=== PATIENT | female | born 2000 | race Caucasian/White ===

== ENCOUNTER 2024-10-27 17:30 | Emergency (ER) | payer BC, SELFPAY ==
--- NOTE | ~2024-10-27 | CT_ITS ---
CLINICAL INDICATION: Dysuria with associated flank pain, hematuria and vomiting COMPARISON: None. TECHNIQUE: Multiple contiguous axial images of the abdomen and pelvis were performed without the admi nistration of intravenous contrast The dose-length product (DLP) was 166.78 mGy-cm. Automated exposure control and iterative reconstruction technique were employed. FINDINGS/OBSERVATIONS: Visualized lower thorax: The bilateral lung bases are clear. The heart is of normal size, without pericardial effusion. Liver: The liver demonstrates homogeneous attenuation and is not enlarged. Gallbladder and biliary system: The gallbladder is only minimally distended, and otherwise unremarkable. Pancreas: Limited evaluation of the pancreas secondary to the lack of intravenous contrast. Spleen: The spleen demonstrates homogeneous attenuation and is not enlarged. Kidneys: The bilateral kidneys are without hydronephrosis or renal calculi. Adrenal glands: Unremarkable. Gastrointestinal tract: Bowel loops are unremarkable. Appendix: The air-filled appendix is of normal caliber (coronal series, images 22 through 32). Vasculature: Unremarkable. Lymph nodes: Limited evaluation without intravenous contrast. Pelvic structures: The bladder is only minimally distended, and demonstrates surrounding inflammatory change, findings s uggesting cystitis. The uterus is anteverted and anteflexed, and otherwise unremarkable. Body wall and musculoskeletal: No significant degenerative disease within the lower thoracic or lumbosacral spine. IMPRESSION: No obstructive uropathy. Findings suggesting cystitis for which clinical and serologic correlation is needed. Reviewed, dictated and finalized at location A. IMPRESSION: No obstructive uropathy. Findings suggesting cystitis for which clinical and serologic correlation is ne eded.
--- OUTSIDE RECORDS SUMMARY | 2024-10-27 17:32 | XMS_ITS | Clinical Summary ---
Author Organization [facility] Address [address] [place] [address] Care Team Providers Care Peoplesoft Hr Developer Name Role Phone Unavailable Primary Care Provider Unavailabl e Source Comments [facility],non-owned Affiliates and Associated Physician Practices is amultiple site organization consisting of ambulatory clinics and hospital sitesin [place], [place], [place] and [place]. This disclosure is being madepursuant to the Care Everywhere program and may not contain all information available regarding this patient. Last updated 17.[facility] Allergies No known active allergies Social History Tobacco Use Types Packs/Day Years Used Date Smoking Tobacco: Never Assessed Comments No Sex and Gender Information Value Date Recorded Sex Assigned at Not on file Legal Sex Female 9:43 AM CDT Gender Identity Not on file Sexual Orientation Not on file Plan of Treatment Health Maintenance Due Date Last Done Comments HIV SCREENING 2016 HPV VACCINE (1 - 3-dose series) 2016 MENINGOCOCCAL (Group B) VACCINE SHARED DECISION-MAKING (1 of 2 - Standard) 2017 HEPATITIS C SCREENING 09/29/2019 DTAP/TDAP/TD VACCINES (1 - Tdap) 2020 HEPATITIS B VACCINE (1 of 3 - 19+ 3-dose series) 2020 CHLAMYDIA/GONORRHEA SCREENING 08/12/2022 08/12/2021 PAP SMEAR 2022 COVID-19 VACCINE (1 - season) 2023 DEPRESSION SCREENING 03/13/2024 INFLUENZA VACCINE (#1) 2024 2, 03/11/2020, 12/28/2017, Additional history exists ZOSTER VACCINE (1 of 2) 10/04/2051 HIB VACCINE Aged Out No longer eligi ble based on patient's age to complete this topic MENINGOCOCCAL GROUPS A/C/Y/W VACCINE Aged Out No longer eligible based on patient's age to complete this topic PNEUMOCOCCAL VACCINE Aged Out No long er eligible based on patient's age to complete this topic [place] [address] [address] [place] [address] [facility] MEDICAID
--- OUTSIDE RECORDS SUMMARY | 2024-10-27 17:32 | XMS_ITS | Continuity of Care Document ---
Author Organization [facility] Address [address] [place] [address] Phone Care Team Providers Care Senior Report Developer Name Role Phone Delfina Carmella Unavailable Unavailable Advance Directives Directive Yes / No Effective Date File Name No Information Encounters Encounter Description Practice Location Reason(s) For Visit Diagnoses Date Provider Providers Copied on Encounter [facility], [address], [place], [place], [address], [place] tel:[phone] [facility] New patient (chief complaint) No Information Delfina Carmella. [address] [place], [place], [id number], [place]. tel:[phone] Family History Family Member Type Diagnosis Age At Onset No Information Payers Payer name Insurance type Covered green party ID Authoriza tion(s) No Information Social History Type Description Quantity Date Captured Comments Sex Female Smoking Status No Information Chief Complaint And Reason For Visit From encounter dated '08/19/2021 09:15'. New patient (chief complaint). Description: last PCP:Recent visits:Future appt:Recent vaccinations:COVID, TD/TdapQuestions: Reason For Referral Reason For Referral No Information History Of Present Illness Encounter Date Complaint History Of Prese nt Illness New patient last PCP:Recent visits:Future appt:Recent vaccinations:COVID, TD/TdapQuestions: Functional Status Date Functional Assessmen t No Information Instructions Date Instruction Additional Infor mation No Information Assessments Type Assessment Date No Information Patient Care Teams Name Effective Dates (start - stop) Status Members No Information
--- OUTSIDE RECORDS SUMMARY | 2024-10-27 17:32 | XMS_ITS | Encounter Summary ---
Author Organization [facility] Address [address] [place] [address] Care Team Providers Care Sales Director Name Role Phone Selmamateo Brianda GONZALEZ Unavailable [phone] Encounter Details Date Type Department Care Team (Late st Contact Info) Description 07/08/2022 Telephone [facility] Women's Health Maternal & Care [address] [place] [address] Monique Martin Social History Tobacco Use Types Packs/Day Years Used Date Smoking Tobacco: Never Assessed Comments Yes Sex and Gender Information Value Date Recorded Sex Assigned at Not on file Legal Sex Female 9:43 AM CDT Gender Identity Not on file Sexual Orientation Not on file documented as of this encounter Plan of Treatment Not on file documented as of this encounter Visit Diagnoses Not on filedocumented in this encounter Care Teams Sales Director Relationship Specialty Start Date End Date Brianda Hernandez APRN-CNP [address] [place] [address] PCP - Attributed-BC[employer] Medicaid MD 08/11/20 07/28/24 documented as of this encounter
[2024-10-27 17:37] VITALS: BP 106/67; PULSE 80; RESP 16; TEMP 36.4; O2SAT 97
[2024-10-27 17:57] LABS: Add Urine Microscopic? YES; Appearance Urine Turbid (Clear); Glucose Urine UA Negative (Negative); Leukocyte Esterase Ur 3+ LEU/UL (Negative); Need Manual Microscopic Reviewed; Nitrate Urine Negative (Negative); Specific Grav Ur 1.021 (1.001-1.035)
[2024-10-27 18:13] LABS: BEDSIDEPREGUCG Negative (Negative)
--- OUTSIDE RECORDS SUMMARY | 2024-10-27 18:17 | XMS_ITS | Encounter Summary ---
Author Organization [facility] Address [address] [place] [address] Care Team Providers Care Director Physical Name Role Phone Selmamateo Brianda GONZALEZ Unavailable [phone] Encounter Details Date Type Department Care Team (Late st Contact Info) Description 07/08/2022 Telephone [facility] Women's Health Maternal & Care [address] [place] [address] Monique Martin Social History Tobacco Use Types [...] on filedocumented in this encounter Care Teams Director Physical Relationship Specialty Start Date End Date Brianda Hernandez APRN-CNP [address] [place] [address] PCP - Attributed-BC[employer] Medicaid MD 08/11/20 07/28/24 documented as of this encounter
--- OUTSIDE RECORDS SUMMARY | 2024-10-27 18:17 | XMS_ITS | Clinical Summary ---
Author Organization [facility] Address [address] [place] [address] Care Team Providers Care Steam Powerplant Supervisor Name Role Phone Unavailable Primary Care Provider Unavailabl e Source Comments [facility],non-owned Affiliates and Associated Physician Practices is amultiple site organization consisting of ambulatory clinics and hospital sitesin [place], [place], [place] and [place]. This disclosure is being madepursuant to the Care Everywhere program and may not contain all information available regarding this patient. Last updated 17.[facility] Allergies No known active allergies Social History [...] patient's age to complete this topic [place] [address] [address] [place] [address] [facility] MEDICAID
--- OUTSIDE RECORDS SUMMARY | 2024-10-27 18:17 | XMS_ITS | Clinical Summary ---
Author Organization [facility] Address [address] [place] [address] Care Team Providers Care Train Master Name Role Phone None, Provider MD Primary Care Provider Unavaila ble Allergies No known active allergies Medications vitamin, low iron, ( VITAMIN WITH IRON) 27-0.8 MG tablet Take 1 tablet by mouth daily. Active Active Problems Problem Noted Date Diagnosed Date Hypertension in , p reeclampsia, severe, delivered ([facility]) 10/23/2022 Overview (10/23/2022): Required labetalol IV and mag sulfate for 24hrs Vaginal delivery ([facility]) 10/23/2022 Shoulder dystocia during lab or and delivery, delivered ([facility]) 10/23/2022 Cervical laceration 10/23/2022 Anemia affecting ([facility]) 10/23/2022 History of blood transfusion 10/23/2022 septic endometritis ([facility]) 023 Overview (10/23/2022): S/p 48hrs of gent/clinda ([facility]) 10/17/2022 Social History Tobacco Use Types Packs/Day Years Used Date Smoking Tobacco: Never Smokeless Tobacco: Never Tobacco Cessation:Counseling Given: Not Answered Alcohol Use Standard Drinks/Week Comments Never 0 (1 standard drink = 0.6 oz pur e alcohol) Humiliation, Afraid, Rape, and Kick questionnair e Answer Date Recorded Within the last year, have y ou been afraid of your partner or ex-partner? No 10/24/2022 Within the last year, have y ou been humiliated or emotionally abused in other ways by your partner or ex-partner? No Within the last year, have y ou been kicked, hit, slapped, or otherwise physically hurt by your partner or ex-partner? No 10/24/2022 Within the last year, have y ou been raped or forced to have any kind of sexual activity by your partner or ex-partner? No 10/24/2022 Social Connection and Isolat ion Panel [NHANES] Answer Date Recorded In a typical week, how many times do you talk on the phone with family, friends, or neighbors? More than three times a week 10/24/2022 How often do you get togethe r with friends or relatives? More than three times a week 10/24/2022 How often do you attend chur or hoahaoism services? Never 10/24/2022 Do you belong to any clubs o r organizations such as mosque groups, unions, fraternal or athletic groups, or school groups? No 10/24/2022 How often do you attend meet ings of the clubs or organizations you belong to? Never 10/24/2022 Are you , , di vorced, , never , or living with a partner? Living with partner 10/24/2022 AUDIT-C Answer Date Recorded Q1: How often do you have a drink containing alcohol? Never 10/24/2022 Q2: How many drinks containi ng alcohol do you have on a typical day when you are drinking? Patient does not drink Q3: How often do you have si x or more drinks on one occasion? Never 10/24/2022 Overall Financial Resource Strain (CARDIA) Answe r Date Recorded How hard is it for you to pa y for the very basics like food, housing, medical care, and heating? Not hard at all 10/24/2022 [facility] [place] of Occupat ional Health - Occupational Stress Questionnaire Answer Date Recorded Do you feel stress - tense, restless, nervous, or anxious, or unable to sleep at night because your mind is troubled all the time - these days? Not at all 10/24/2022 Exercise Vital Sign Answer Date Recorde d On average, how many days pe r week do you engage in moderate to strenuous exercise (like a brisk walk)? 4 days 10/24/2022 On average, how many minutes do you engage in exercise at this level? 40 min 10/24/2022 Hunger Vital Sign Answer Date Recorded Within the past 12 months, y ou worried that your food would run out before you got the money to buy more. Never true 10/25/19 23 Within the past 12 months, t he food you bought just didn't last and you didn't have money to get more. Never true 10/24/2022 PRAPARE - Transportation Answer Date Re corded In the past 12 months, has l ack of transportation kept you from medical appointments or from getting medications? No 10/11 In the past 12 months, has l ack of transportation kept you from meetings, work, or from getting things needed for daily living? No 10/24/2022 Housing Stability Vital Sign Answer Peterson e Recorded In the last 12 months, was t here a time when you were not able to pay the mortgage or rent on time? No 10/24/2022 In the last 12 months, how many places have you lived? 2 10/24/2022 In the last 12 months, was t here a time when you did not have a steady place to sleep or slept in a mcc (including now)? No 10/24/2022 Depression Answer Date Recor ded Last EPDS Total Score 4 10/21/2022 Last EPDS Self Harm Result Unrecognized value Comments No Sex and Gender Information Value Date Recorded Sex Assigned at Not on file Legal Sex Female 8:04 PM CDT Gender Identity Not on file Sexual Orientation Not on file Last Filed Vital Signs Vital Sign Reading Time Taken Comments Blood Pressure 137/90 10/24/2022 12:21 PM CDT Pulse 103 10/24/2022 10:29 AM CDT Temperature 36.6 C (97.9 F) 10/24/2022 7:28 AM CDT Respiratory Rate 16 10/24/2022 7:28 AM CDT Oxygen Saturation 98% 10/24/2022 7:28 AM CDT Inhaled Oxygen Concentration - - Weight 54 kg (119 lb) 10/17/2022 5:00 PM CDT Height 152.4 cm (5') 10/17/2022 5:00 PM CDT Body Mass Index 23.24 10/17/2022 5:00 PM CDT Plan of Treatment Health Maintenance Due Date Last Done Comments Cervical Cancer Screening Pap Smear (Age 21 to 29) Every 3 Years 2001 Cervical Cancer Screening 2001 Annual Physical 2004 Chlamydia Screening Females ages 16-24 2017 Meningococcal B Vaccine (1 of 2 - Standard) 2017 Hepatitis C 10/04/2019 COVID-19 Vaccine (1 - 2023- season) 2023 DTaP, Tdap and Td Vaccines (8 - Td or Tdap) 08/26/2032 08/26/2022, 03/11/2020, 02/21/2013, Additional history exists Hepatitis B Vaccines Completed 07/08/2002, 07/04/2002, 2001, Additional history exists Pneumococcal Vaccine: Pediatrics (0 to 5 Years) and At-Risk Patients (6 to 49 Years) Aged Out 04/08/2003, 07/08/2002, 04/05/2002, Additional history exists No longer eligible based on patient's age to complete this topic HPV Vaccines Completed 04/17/2014, 100 08/2013, 02/21/2013 Meningococcal Vaccine Completed 05/18/2018, 013 RSV Immunizations Under 20 Months Aged Out No longer eligible based on patient's age to complete this topic Insurance [facility] Advance Directives * Full Code (Latest Code Status on File) Date Activated Date Inactivated Comments 10/17/2022 6:31 PM 10/24/2022 4:30 PM Care Teams Train Master Relationship Specialty Start Date End Date None, Provider, MD PCP - General UNKNOWN PHYSICIAN SPECIALTY 10/06/22
--- OUTSIDE RECORDS SUMMARY | 2024-10-27 18:17 | XMS_ITS | Clinical Summary ---
Author Organization [facility] Address [address] [place] [address] Care Team Providers Care Coal Equipment Operator Name Role Phone Mandie Bee Primary Care Provider + Allergies No known active allergies Medications predniSONE (DELTASONE) 50 mg tablet Take 1 tablet (50 mg) by mouth daily 5 tablet 09/17/2021 Active ondansetron (ZOFRAN) 4 mg tablet Take 1 tablet (4 mg total) by mouth every 6 (six) hours 12 tablet 03/22/2022 Active doxylamine-pyri doxine, vit B6, (DICLEGIS) 10-10 mg tablet Take 1 tablet by mouth nightly as needed for nausea 30 tablet 04/04/2022 Active famotidine (PEPCID) 20 mg tablet Take 1 tablet (20 mg total) by mouth 2 (two) times a day 60 tablet 09/15/2022 Active Social History Tobacco Use Types Packs/Day Years Used Date Smoking Tobacco: Never Assessed Personal Safety Answer Date Recorded Have you ever been in or are you currently in a harmful physical or emotional relationship or is someone making you feel afraid or unsafe? Denies 09/15/2022 Comments Unknown Sex and Gender Information Value Date Recorded Sex Assigned at Not on file Legal Sex Female 7:16 PM MICROBIOLOGICAL LAB TECHNICIAN Gender Identity Not on file Sexual Orientation Not on file Obstetrics History Para Term AB IAB SAB Ectopic Multiple Livin g Live Births 1 Date Outcome GA Total Labor Labor/2nd/3rd Weight Sex Type Anes PTL Nica A1 A5 Name Clin Last Filed Vital Signs Vital Sign Reading Time Taken Comments Blood Pressure 124/81 09/15/2022 12:52 AM CDT Pulse 74 09/15/2022 12:52 AM CDT Temperature 36.6 C (97.9 F) 09/15/2022 12:52 AM CDT Respiratory Rate 18 09/15/2022 12:52 AM CDT Oxygen Saturation 100% 09/15/2022 12:52 AM CDT Inhaled Oxygen Concentration - - Weight 54.6 kg (120 lb 5.9 oz) 09/15/2022 12:52 AM CDT Height 152.4 cm (5') 09/15/2022 12:52 AM CDT Body Mass Index 23.51 09/15/2022 12:52 AM CDT Plan of Treatment Health Maintenance Due Date Last Done Comments Cervical Cancer Screening 2001 Depression Screening 2001 Hepatitis C Screening 2001 Varicella Vaccines (2 of 2 - 2-dose childhood series) 05/16/2013 02/21/2013 Meningococcal B Vaccine (1 o f 2 - Standard) 2017 Regular Well Visit/Exam 18-64 10/04/2019 Influenza Vaccine (#1) 2024 0, 12/28/2017, 11/30/2016, Additional history exists DTaP/Tdap/Td Vaccine (7 - Td or Tdap) 03/11/2030 03/11/2020, 02/21/2013, 01/13/2003, Additional history exists Hepatitis B Screening Completed 07/08/2002 , 07/04/2002, 2001, Additional history exists Pneumococcal vaccine <65 Completed 004, 07/08/2002, 04/05/2002, Additional history exists HPV Vaccines Completed 04/17/2014, 100 08/2013, 02/21/2013 Insurance [facility] PL[facility] Care Teams Coal Equipment Operator Relationship Specialty Start Date End Date Mandie Bee PA PCP - General Physician Web Press Operator Helper Offset 08/05/22
--- OUTSIDE RECORDS SUMMARY | 2024-10-27 18:17 | XMS_ITS | Continuity of Care Document ---
Author Organization [facility] Address [address] [place] [address] Phone Care Team Providers Care Video Player Mechanic Name Role Phone Delfina Carmella Unavailable Unavailable Advance Directives Directive Yes / No Effective Date File Name No Information Encounters Encounter Description Practice Location Reason(s) For Visit Diagnoses Date Provider Providers Copied on Encounter [facility], [address], [place], [place], [address], [place] tel:[phone] [facility] New patient (chief complaint) No Information Delfina Carmella. [address] [place], [place], [id number], [place]. tel:[phone] Family History Family Member Type Diagnosis Age [...]
--- NOTE | 2024-10-27 18:55 | ED.FEMALEGU ---
HPI - Female Genitourinary General Chief complaint: Urogenital-Female Stated complaint: burning with urination Time Seen by Provider: 10/27/24 17:41 Source: patient Mode of arrival: ambulatory Limitations: no limitations History of Present Illness HPI Narrative: This is a 24 year old female that presents to the ER for dysuria. Ongoing over the last couple of days. Reports associated flank pain, hematuria, vomiting. Denies fevers. Related Data Allergies Allergy/AdvReac Type Severity Reaction Status Date / Time No Known Allergies Allergy Unverified 05/29/18 10:00 Review of Systems Review of Systems: All systems reviewed & are unremarkable except as noted in HPI and below PMFSH Past Medical History Medical History (Updated 10/27/24 @ 22:23 by Antonella Garcia PA-C) History of anxiety Exam Narrative: GENERAL: Well-appearing, well-nourished, and in no acute distress. HEAD: Normocephalic, atraumatic. EYES: EOMI. CHEST: Clear to auscultation. No respiratory distress. No wheezes rales or rhonchi HEART: Regular rate and rhythm. No murmur heard. Normal peripheral pulses. ABDOMEN: Soft, nontender, nondistended, normal active bowel sounds. EXTREMITIES: Normal range of motion. No edema. SKIN: Warm, dry, no rash. NEURO: No focal deficits. Alert and oriented x3. PSYCH: Normal mood and affect Course Vital Signs Vital signs: Vital Signs Temperature 97.6 F 10/27/24 17:37 Pulse Rate 80 10/27/24 17:37 Respiratory Rate 16 10/27/24 17:37 Blood Pressure 106/67 10/27/24 17:37 Pulse Oximetry 97 10/27/24 17:37 Temperature 97.6 F 10/27/24 17:37 Pulse Rate 80 10/27/24 17:37 Respiratory Rate 16 10/27/24 17:37 Blood Pressure 106/67 10/27/24 17:37 Pulse Oximetry 97 10/27/24 17:37 MDM - Female Genitourinary MDM Narrative Medical decision making narrative: Patient presents to the emergency department for flank pain, dysuria. Patient is afebrile and nontoxic appearing. CBC leukocytosis to 13.9. Metabolic panel with normal kidney function. Urine with evidence of infection. This was sent for culture. CT abdomen pelvis without obstructive uropathy. Chlamydia, gonorrhea, Trichomonas negative. Patient given 1st dose of antibiotics in the ER. Will be discharged with further oral antibiotics. She is to follow up with primary provider. She was given warnings to return to the ER Differential Diagnosis Differential diagnosis: Likely urinary tract infection and other (kidney stone, STD) Lab Data Attestation: I reviewed the patient's lab results. 10/27/24 19:39 10/27/24 19:26 Labs: Lab Results 10/27/24 10/27/24 10/27/24 Range/Units 17:38 17:39 18:11 WBC (4.5-10.0) K/mm3 RBC (4.2-5.4) M/mm3 Hgb (12.0-15.0) g/dL Hct (37.0-47.0) % MCV (80-100) fl MCH (26-34) pg MCHC (32-36) g/dl RDW (11.5-14.5) % Plt Count (150-375) k/mm3 MPV (7.4-10.4) fl Immature Gran % (Auto) (0-0.5) % Neut % (Auto) (45.5-73.1) % Lymph % (Auto) (18.3-44.2) % Dawson % (Auto) (2.6-8.5) % Eos % (Auto) (0-4.4) % Baso % (Auto) (0.2-1.2) % Lymph # (Auto) (0.9-3.2) K/mm3 Dawson # (Auto) (0.1-0.6) K/mm3 Eos # (Auto) (0-0.3) K/mm3 Baso # (Auto) (0.0-0.1) K/mm3 Abs Immat Gran (auto) (0.00-0.031) K/mm3 Absolute Neuts (auto) (1.3-6.7) K/mm3 Absolute Nucleated RBC (0.0-0.012) K/mm3 Nucleated RBC % (0.0-0.2) % Sodium (137-145) mmol/L Potassium (3.4-5.0) mmol/L Chloride (98-107) mmol/L Carbon Dioxide (22-30) mmol/L Anion Gap (4-12) mmol/L BUN (7-17) mg/dL Creatinine (0.7-1.0) mg/dL Estim Creat Clear Calc Estimated GFR (59 - ) Glucose (65-110) mg/dL Calcium (8.4-10.2) mg/dL Urine Color Dark yellow (Yellow) Urine Appearance Turbid H (Clear) Urine pH 6.5 (5.0-9.0) Ur Specific [place] 1.021 (1.001-1.035) Urine Protein 3+ H (Negative) mg/dL Urine Glucose (UA) Negative (Negative) mg/dL Urine Ketones Trace H (Negative) mg/dL Ur Blood (Man) 3+ H (Negative) Urine Nitrate Negative (Negative) Urine Bilirubin Negative (Negative) Urine Urobilinogen 1.0 (<2.0) mg/dL Add Ur Microanalysis Reviewed Leukocyte Esterase Rfl 3+ H (Negative) MICKEY/UL Urine RBC >100 H (0-2) /hpf Urine WBC >100 H (0-3) /hpf Ur Squamous Epith Cells Many H (Few) /hpf Urine Bacteria 3+ H /hpf Urine Casts 11-20 POC Urine HCG, Qual Negative (Negative) C. trachomatis (PCR) Not detected (NOT DETECTE) N. gonorrhoeae (PCR) Not detected (NOT DETECTE) T. vaginalis (PCR) Not detected (NOT DETECTE) 10/27/24 10/27/24 Range/Units 19:26 19:39 WBC 13.9 H (4.5-10.0) K/mm3 RBC 4.32 (4.2-5.4) M/mm3 Hgb 12.6 (12.0-15.0) g/dL Hct 38.1 (37.0-47.0) % MCV 88.2 (80-100) fl MCH 29.2 (26-34) pg MCHC 33.1 (32-36) g/dl RDW 12.5 (11.5-14.5) % Plt Count 288 (150-375) k/mm3 MPV 11.1 H (7.4-10.4) fl Immature Gran % (Auto) 0.4 (0-0.5) % Neut % (Auto) 76.9 H (45.5-73.1) % Lymph % (Auto) 16.6 L (18.3-44.2) % Dawson % (Auto) 5.4 (2.6-8.5) % Eos % (Auto) 0.4 (0-4.4) % Baso % (Auto) 0.3 (0.2-1.2) % Lymph # (Auto) 2.31 (0.9-3.2) K/mm3 Dawson # (Auto) 0.8 H (0.1-0.6) K/mm3 Eos # (Auto) 0.1 (0-0.3) K/mm3 Baso # (Auto) 0.0 (0.0-0.1) K/mm3 Abs Immat Gran (auto) 0.06 H (0.00-0.031) K/mm3 Absolute Neuts (auto) 10.7 H (1.3-6.7) K/mm3 Absolute Nucleated RBC 0.000 (0.0-0.012) K/mm3 Nucleated RBC % 0.0 (0.0-0.2) % Sodium 135 L (137-145) mmol/L Potassium 3.8 (3.4-5.0) mmol/L Chloride 104 (98-107) mmol/L Carbon Dioxide 23 (22-30) mmol/L Anion Gap 8 (4-12) mmol/L BUN 13 (7-17) mg/dL Creatinine 0.72 (0.7-1.0) mg/dL Estim Creat Clear Calc Not Reportable Estimated GFR > 60 (59 - ) Glucose 81 (65-110) mg/dL Calcium 9.8 (8.4-10.2) mg/dL Urine Color (Yellow) Urine Appearance (Clear) Urine pH (5.0-9.0) Ur Specific [place] (1.001-1.035) Urine Protein (Negative) mg/dL Urine Glucose (UA) (Negative) mg/dL Urine Ketones (Negative) mg/dL Ur Blood (Man) (Negative) Urine Nitrate (Negative) Urine Bilirubin (Negative) Urine Urobilinogen (<2.0) mg/dL Add Ur Microanalysis Leukocyte Esterase Rfl (Negative) MICKEY/UL Urine RBC (0-2) /hpf Urine WBC (0-3) /hpf Ur Squamous Epith Cells (Few) /hpf Urine Bacteria /hpf Urine Casts POC Urine HCG, Qual (Negative) C. trachomatis (PCR) (NOT DETECTE) N. gonorrhoeae (PCR) (NOT DETECTE) T. vaginalis (PCR) (NOT DETECTE) Imaging Data Radiologist's impression: ITS Impressions Abdomen/Pelvis CT 10/27/24 20:05 IMPRESSION: No obstructive uropathy. Findings suggesting cystitis for which clinical and serologic correlation is needed. Critical Care Time Critical Care Time Critical Care Time: No Discharge Plan Discharge Clinical Impression: Acute UTI Patient Disposition: Home Condition: Stable Instructions: Antibiotic Form, Urinary Tract Infection in Women (ED) Additional Instructions: Return to the ER if you experience fever, abdominal pain with nausea and vomiting, you are unable to keep down liquids or solids, or any other symptoms that are concerning to you Remain well hydrated. Take oral antibiotic as prescribed Follow up with primary care doctor Patient Language: Syrian Prescriptions: New cefdinir 300 mg capsule 300 mg PO Q12H 7 Days Qty: 14 0RF Follow-up/Referrals: Epi,Rhonda Gonzalez NP [Primary Care Provider] -
[2024-10-27 19:44] LABS: Anion Gap 8 mmol/L (4-12); Blood Urea Nitrogen 13 mg/dL (7-17); Calcium 9.8 mg/dL (8.4-10.2); Carbon Dioxide 23 mmol/L (22-30); Chloride 104 mmol/L (98-107); Estimated Glomerular Filt Rate > 60; Glucose 81 mg/dL (65-110); Potassium 3.8 mmol/L (3.4-5.0); Sodium 135 mmol/L (137-145)
--- NOTE | 2024-10-27 19:48 | PC.NURSE ---
pt asked tech to take needle out. tech unable to get second vial of blood. pt refused another blood draw
[2024-10-27 20:08] LABS: Hematocrit 38.1 % (37.0-47.0); Hemoglobin 12.6 g/dL (12.0-15.0); Immature Granulocyte Percent A 0.4 % (0-0.5); Lymphocytes Absolute Auto 2.31 K/mm3 (0.9-3.2); Mean Corpuscular HGB Conc 33.1 g/dl (32-36); Mean Corpuscular Hemoglobin 29.2 pg (26-34); Mean Corpuscular Volume 88.2 fl (80-100); Nucleated Red Blood Cells Absolute Auto 0.000 K/mm3 (0.0-0.012); Nucleated Red Blood Cells Perc 0.0 % (0.0-0.2); Platelet Count Result 288 k/mm3 (150-375); Red Blood Count 4.32 M/mm3 (4.2-5.4); White Blood Count 13.9 K/mm3 (4.5-10.0)
[2024-10-27 21:22] LABS: Trichomonas Vag PCR NOT DETECTED (NOT DETECTE)
[2024-10-27 21:23] VITALS: BP 110/70; PULSE 83; RESP 17; O2SAT 98
[2024-10-27 22:45] VITALS: BP 117/74; PULSE 77; RESP 14; O2SAT 100
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
--- NOTE | 2024-10-27 23:13 | PC.NURSE ---
This RN went to discharge pt. pt not in room. pt left before papers or medication
[2024-10-27 23:14] VITALS: BP 117/74; PULSE 77; RESP 14; O2SAT 100
== END 2024-10-27 23:16 | disposition home or self-care (01) ==
PROVIDERS: Emergency Medicine; Emergency Provider Physician Assistant; PCP Nurse Practitioner Family
DX: N39.0 Urinary tract infection, site not specified (principal)
CPT/HCPCS: 36415; 74176; 80048; 81001; 81025; 85025; 87491; 87591; 87661; 99284